=== PATIENT | male | born 1980 | race Caucasian/White ===

== ENCOUNTER 2019-12-31 10:20 | Emergency (ER) | payer BC, OTHER, SELFPAY ==
--- NOTE | ~2019-12-31 | CT_ITS ---
EXAMINATION: CT abdomen pelvis wo con DATE: 12/31/2019 10:53 INDICATION: Left flank pain TECHNIQUE: Computed tomography (CT) of the abdomen and pelvis was performed without intravenous contr ast. Automated exposure control and iterative reconstruction technique were employed. The dose-length product was 170.99 mGy-cm. COMPARISON: CT dated 06/10/2013 and obstructive series dated 07/14/2013 FINDINGS: Lung bases are clear. Heart size is normal. No pericardial or pleural effusion. 7 mm hepatic cyst. Ga llbladder, spleen, pancreas, bilateral adrenal glands and kidneys are normal. No urolithiasis. Unchan ged 4 mm phlebolith in the left hemipelvis. Bladder is normal. Bowels are normal with no evident wall thickening or obstruction. The appendix is not visualized. No pericecal inflammatory change to sugge st acute appendicitis. No free intraperitoneal gas or fluid. No pathologically enlarged abdominal or pelvic lymphadenopathy. Increased density within the inferior left inguinal canal which inferiorly de monstrates fluid attenuation consistent with hydrocele demonstrate slightly greater than simple fluid attenuation more cephalad however assessment is limited by subtle bands of streak artifact extending across this region. No evident inguinal hernia. Lumbosacral facet osteoarthritis, moderate on the ri ght and severe on the left. IMPRESSION: 1. Increased density within the inferior left inguinal canal most likely related to a left hydrocele however assessment of density somewhat limited by streak artifact. Correlate for testicular and/tende rness and consider scrotal ultrasound for further evaluation. Reviewed, dictated and finalized at location A. ECTIVE SIGNAL REPAIRER HELPER IMPRESSION: 1. Increased density within the inferior left inguinal canal most likely relate d to a left hydrocele however assessment of density somewhat limited by streak artifact. Correlate for testicular and/tenderness and consider scrotal ultrasou nd for further evaluation.
[2019-12-31 10:17] VITALS: BP 127/80; PULSE 75; RESP 19; TEMP 36.7; O2SAT 100
--- NOTE | 2019-12-31 10:28 | ED.GENADULT ---
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 He states that he has chronic pain on that side and in the past they have just given him pain medication and sent him on his way. He states that he does sometimes have pain with urination, denies any fever, and is having normal bowel movements. He has no history of kidney stones, he is never been evaluated. Onset (ago): day(s) Location: left (flank) Radiation: non-radiation Severity: moderate Quality: sharp Pain Consistency: colicky Relieving factors: none Exacerbating factors: movement and other (touch) Associated symptoms: denies other symptoms Treatments prior to arrival: none Related Data Home Medications Medication Instructions Recorded Confirmed No Home Medications 12/31/19 12/31/19 Allergies Allergy/AdvReac Type Severity Reaction Status Date / Time No Known Allergies Allergy Verified 12/31/19 10:24 Review of Systems Review of Systems: All systems reviewed & are unremarkable except as noted in HPI and below PMFSH Family History Family History Other Family history of alcoholism Social History Social History Smoking status: Former smoker Second hand tobacco smoke exposure: No Smoking end date: 11/17/13 Alcohol intake: never Exam Const: General: no acute distress and alert Orientation/consciousness: patient oriented x3 HENMT: Head: normal to inspection Eyes: Pupils: Equal, round and reactive pupils present Chest: Chest palpation & inspection: normal inspection of the chest Resp: Effort & Inspection: normal respiratory effort Auscultation: clear to auscultation bilaterally Cardio: Rate: regular rate Rhythm: regular rhythm GI: GI Palp: Yes Soft to palpation and Yes No hepatosplenomegaly present Auscultation: normal bowel sounds : General: Yes CVA tenderness on the left Male General Exam: Yes normal external exam Scrotum: scrotum normal Testes: Testes normal Skin: General skin exam: normal color Rashes: no rashes Neuro: General: patient oriented x3 and moves all extremities Extrem: General: normal to inspection Psych: Mental Status: mental status grossly normal Course Course Emergency Course: Radiology and lab results reviewed with the patient. There is mild thrombocytopenia, no palpable spleen. Per CT report there was possibility of a hydrocele on the left, no evidence of a inguinal hernia. I discussed this with the patient and examined his scrotum he stated that he does have an intermittent bump above on the left. He is tender but there is no evidence of hernia with bearing down or standing. Most likely it is an inguinal hernia that needs to be further investigated by primary care. Pt is fine with ibuprofen only for pain. Vital Signs Vital signs: Vital Signs Temperature 36.7 C 12/31/19 10:17 Pulse Rate 75 12/31/19 10:17 Respiratory Rate 12/31/19 10:17 Blood Pressure 127/80 12/31/19 10:17 Pulse Oximetry 100 12/31/19 10:17 Temperature 36.7 C 12/31/19 10:17 Pulse Rate 75 12/31/19 10:17 Respiratory Rate 12/31/19 10:17 Blood Pressure 127/80 12/31/19 10:17 Pulse Oximetry 100 12/31/19 10:17 Medical Decision Making Vital Signs Vital Signs: Vital Signs Temperature 36.7 C 12/31/19 10:17 Pulse Rate 75 12/31/19 10:17 Respiratory Rate 12/31/19 10:17 Blood Pressure 127/80 12/31/19 10:17 Pulse Oximetry 100 12/31/19 10:17 Temperature 36.7 C 12/31/19 10:17 Pulse Rate 75 12/31/19 10:17 Respiratory Rate 12/31/19 10:17 Blood
[2019-12-31 10:51] LABS: Eosinophils Absolute Auto 0.1 K/mm3 (0-0.3); Eosinophils Percent Auto 1.2 % (0-4.4); Hematocrit 41.9 % (42.0-52.0); Hemoglobin 13.8 g/dL (14.0-18.0); Immature Granulocyte Absolute 0.01 K/mm3 (0.00-0.031); Immature Granulocyte Percent A 0.2 % (0-0.5); Lymphocytes Absolute Auto 1.13 K/mm3 (0.9-3.2); Lymphocytes Percent Auto 27.4 % (18.3-44.2); Mean Corpuscular HGB Conc 32.9 g/dl (32-36); Mean Corpuscular Hemoglobin 27.1 pg (26-34); Mean Corpuscular Volume 82.3 fl (80-100); Mean Platelet Volume 12.6 fl (7.4-10.4); Monocytes Absolute Auto 0.3 K/mm3 (0.1-0.6); Monocytes Percent Auto 6.3 % (2.6-8.5); Neutrophils Absolute Auto 2.6 K/mm3 (1.3-6.7); Neutrophils Percent Auto 63.9 % (45.5-73.1); Platelet Count Result 115 k/mm3 (150-375); Red Blood Count 5.09 M/mm3 (4.6-6.20); Red Cell Distribution Width 12.8 % (11.5-14.5); White Blood Count 4.1 K/mm3 (4.5-10.0)
[2019-12-31 11:04] LABS: Alanine Aminotransferase 22 U/L (4-50); Albumin Level 4.1 g/dL (3.5-5.1); Alkaline Phosphatase 67 U/L (38-126); Aspartate Amino Transferase 26 U/L (17-59); Bilirubin,Total 0.5 mg/dL (0.2-1.3); Blood Urea Nitrogen 14 mg/dL (9-20); Carbon Dioxide 29 mmol/L (22-30); Chloride 98 mmol/L (98-107); Estimated Glomerular Filt Rate > 60; Glucose 100 mg/dL (75-110); Potassium 3.8 mmol/L (3.4-5.0); Sodium 140 mmol/L (137-145)
[2019-12-31] MEDS: IBUPROFEN 600 MG TABLET PO (11:43)
[2019-12-31 11:53] LABS: Add Urine Microscopic? YES; Amorphous Sediment Urine Few; Appearance Urine Cloudy (Clear); Bacteria Urine Trace /hpf; Bilirubin Urine Negative (Negative); Blood Urine Negative (Negative); Color Urine Yellow (Yellow); Glucose Urine UA Negative (Negative); Ketones Urine Negative (Negative); Leukocyte Esterase Ur Negative LEU/UL (Negative); Mucus Urine Rare /lpf; Nitrate Urine Negative (Negative); Protein Urine Negative (Negative); RBC Urine 0-2 /hpf (0-2); Squamous Epithelial Cell Urine Rare /hpf (Few)
[2019-12-31 13:13] VITALS: BP 130/75; PULSE 76; RESP 16; O2SAT 98
== END 2019-12-31 13:14 | disposition home or self-care (01) ==
PROVIDERS: Physician Assistant; Emergency Provider Emergency Medicine; PCP Orthopaedic Surgery
DX: N43.3 Hydrocele, unspecified (principal); R10.9 Unspecified abdominal pain; G89.29 Other chronic pain; Z87.891 Personal history of nicotine dependence
CPT/HCPCS: 36415; 74176; 80053; 81001; 85025; 99284; A9270

== ENCOUNTER 2020-01-07 12:30 | Outpatient (CLI) | payer BC, SELFPAY ==
--- NOTE | ~2020-01-07 | US_ITS ---
US scrotum doppler INDICATION: Hydrocele TECHNIQUE: Testicular sonogram utilizing grayscale and color Doppler FINDINGS: The testes are normal in size and appearance. No focal lesions are seen. The right testes measures 4.8 x 1.8 x 3.2 cm centimeters, and the left testis measures 5 x 2.1 x 3.2 cm cm. 4 mm right epididymal cyst. Left epididymis is unremarkable. There are small hydroceles. No evidence for varicocele. IMPRESSION: 1. Small bilateral hydroceles. 2: 4 mm right epididymal cysts. Reviewed, dictated and finalized at location A. R COATER
--- NOTE | ~2020-01-07 | US_ITS ---
EXAMINATION: US right upper quadrant EXAM DATE: 01/07/2020 13:47 INDICATION: Upper abdominal pain. TECHNIQUE: Multiple grayscale and Doppler images of the abdomen right upper quadrant were obtained (b y a technologist who performed the scan) and subsequently reviewed. There is no prior study for dane ramirez. FINDINGS: The pancreatic head and body are normal in appearance. The pancreatic tail is not visualized. The l iver has normal echogenicity and contour. There are no focal liver lesions identified. There is no evidence of intrahepatic biliary duct dilation. Portal venous flow was seen in the hepatopedal, nor mal direction and has normal Doppler waveform. No right-sided hydronephrosis. Common bile duct measures 2-3 mm, which is normal. The gallbladder wall is normal in thickness, with expected amount of distention. No sonographic evidence of pericholecystic fluid. There is no cholel ithiases. Technologist performing exam reports patient did not demonstrate sonographic Jones's sign. Please note that this sign is less reliable in patients who have received pain medication. IMPRESSION: Unremarkable abdominal ultrasound exam. Reviewed, dictated and finalized at location A. R TAILER
== END 2020-01-07 12:31 | disposition home or self-care (01) ==
LOC: ANHIMG 12:32
PROVIDERS: PCP Internal Medicine; Visit Provider Internal Medicine
DX: R10.11 Right upper quadrant pain (principal); N43.3 Hydrocele, unspecified; N50.3 Cyst of epididymis
CPT/HCPCS: 76705; 76870; 93976

== ENCOUNTER → 2020-02-09 12:17 | Outpatient (CLI) | payer BC, SELFPAY ==
--- NOTE | ~2020-02-09 | MR_ITS ---
EXAMINATION: MR thoracic spine wo con DATE: 02/09/2020 12:58 INDICATION: Bilateral flank pain, right greater than left TECHNIQUE: Magnetic resonance imaging (MRI) of the thoracic spine was performed without intravenous c ontrast. Sagittal localizer T1-weighted FSE of the cervicothoracic spine was obtained. Thoracic spine sequences included sagittal T2-weighted FSE, sagittal T1-weighted SE, Sagittal T2-weighted FS FSE, a nd axial T2-weighted FSE. COMPARISON: CT abdomen and pelvis dated 12/31/2019 FINDINGS: Alignment is normal.Vertebral body heights are normal.There are small Schmorl's nodes along the endpl ates between the inferior endplate of T6 and the inferior endplate of T9. Well-defined homogeneous fl uid signal intensity likely benign cystic lesion at the left posterior inferior aspect of theT5 verte bral body. Additional regions of increased fluid signal intensity along the anteroinferior aspect of the T8 and more prominently T9 vertebral bodies most likely representing fibrovascular degenerative e ndplate changes with small limbus vertebrae evident along the anterior inferior endplate of T9 on jennie or CT images. Disc desiccation with moderate disc height loss at T5-T6, T6-T7, T7-T8 and T9-T10. Mild disc height loss at T2-T3 through T4-T5. On the farmworker fur images there is moderate disc height loss with degenerative endplate changes at C5-C6 and mild disc height loss with disc bulge at C6-C7. Additiona l mild disc height loss at C4-C5 with suggestion of an annular fissure and central disc extrusion wit h disc material extending a short distance cephalad to the level of the inferior endplate of C4. Ther e is mild central canal stenosis at C4-C5 and C6-C7. Small right paracentral disc protrusion at T3-T4 with minimal central canal stenosis. Remaining discs do not appear to extend beyond the endplate mar gins with no other central canal stenosis in the thoracic spine. No significant thoracic neural marilynn inal stenosis. There is normal spinal cord signal. The tip of the conus is not visualized located bel ow the level of L1. Paravertebral soft tissues are unremarkable. IMPRESSION: 1. Mild to moderate thoracic and lower cervical spondylosis. Reviewed, dictated and finalized at location A.
== END ==
PROVIDERS: Visit Provider Urology
DX: M47.892 Other spondylosis, cervical region (principal); M47.894 Other spondylosis, thoracic region
CPT/HCPCS: 72146

== ENCOUNTER → 2020-08-10 11:14 | Outpatient (CLI) | payer OTHER, SELFPAY ==
--- NOTE | ~2020-08-10 | US_ITS ---
EXAMINATION: US soft tissue head and neck DATE: 08/10/2020 11:44 INDICATION: Left postauricular mass. TECHNIQUE: Multiple grayscale and Doppler ultrasound images of the neck were obtained. COMPARISON: None FINDINGS: There is a normal superficial lymph node in the patient's area of concern in the left posta uricular region. IMPRESSION: 1. No abnormal mass or lymphadenopathy in the patient's area of concern. Reviewed, dictated and finalized at location A.
== END ==
PROVIDERS: PCP Student in an Organized Health Care Education/Training Program; Visit Provider Student in an Organized Health Care Education/Training Program
DX: R22.0 Localized swelling, mass and lump, head (principal)
CPT/HCPCS: 76536

== ENCOUNTER → 2020-09-25 10:46 | Outpatient (CLI) | payer OTHER, SELFPAY ==
--- NOTE | ~2020-09-25 | CT_ITS ---
EXAMINATION: CT abdomen pelvis w con DATE: 09/25/2020 11:29 INDICATION: Left upper quadrant abdominal pain. Right-sided abdominal pain. TECHNIQUE: Computed tomography (CT) of the abdomen and pelvis was performed with 100 mL Omnipaque-350 intravenous contrast. Automated exposure control and iterative reconstruction technique were employe d. The dose-length product was 260.09 mGy-cm. COMPARISON: 12/31/2019 FINDINGS: Lung bases are clear. Heart size is normal. No pericardial or pleural effusion. There appears to be w all thickening at the gastroesophageal junction represent either a small sliding-type hiatal hernia o r esophagitis at the distalmost esophagus. 9 mm right hepatic lobe cyst. Gallbladder, spleen, pancrea s, bilateral adrenal glands and kidneys are normal. No abnormal bowel wall thickening or obstruction. The appendix is not visualized. No pericecal inflammatory change to suggest acute appendicitis. Nons pecific very small amount of ascites in the pelvis. No pathologically enlarged abdominal or pelvic ly mphadenopathy. Mild thoracolumbar spondylosis. Interval appearance of a small lucent lesion at L4 sta tistically most likely to represent a hemangioma. IMPRESSION: 1. Wall thickening in the region of the gastroesophageal junction which could represent either small sliding-type hiatal hernia or esophagitis at the distalmost esophagus. 2. Nonspecific very small amount of ascites in the pelvis. Reviewed, dictated and finalized at location A. L DESIGNER IMPRESSION: 1. Wall thickening in the region of the gastroesophageal junction which could r epresent either small sliding-type hiatal hernia or esophagitis at the distalmo st esophagus. 2. Nonspecific very small amount of ascites in the pelvis.
== END ==
PROVIDERS: PCP Student in an Organized Health Care Education/Training Program; Visit Provider Student in an Organized Health Care Education/Training Program
DX: F32.1 Major depressive disorder, single episode, moderate (principal); R10.12 Left upper quadrant pain; R93.3 Abnormal findings on diagnostic imaging of other parts of digestive tract
CPT/HCPCS: 74177; Q9967

== ENCOUNTER 2021-02-28 15:24 | Outpatient (CLI) | payer OTHER, SELFPAY | END 2021-02-28 15:25 | disposition home or self-care (01) | LOC: ANHCOVIDVC 15:24 | PROVIDERS: PCP Student in an Organized Health Care Education/Training Program | DX: Z23 Encounter for immunization (principal) | CPT/HCPCS: 0001A; 91300 ==

== ENCOUNTER 2021-03-21 17:39 | Outpatient (CLI) | payer OTHER, SELFPAY | END 2021-03-21 17:40 | disposition home or self-care (01) | LOC: ANHCOVIDVC 17:39 | PROVIDERS: PCP Student in an Organized Health Care Education/Training Program | DX: Z23 Encounter for immunization (principal) | CPT/HCPCS: 0002A; 91300 ==